=== PATIENT | female | born 1970 | race Caucasian/White ===

== ENCOUNTER 2018-09-01 18:21 | Emergency (ER) | payer OTHER ==
[2018-09-01] MEDS ORDERED: APRESOLINE 20 MG/ML INJ ONE (19:11)
[2018-09-01] MEDS ORDERED: Catapres 0.1 MG ONE (19:11)
[2018-09-01] MEDS ORDERED: BABY ASPIRIN 81 MG CHEW PO ONE (19:11)
[2018-09-01] MEDS ORDERED: APRESOLINE 20 MG/ML INJ IV ONE (19:13)
[2018-09-01] MEDS ORDERED: Catapres 0.1 MG PO ONE (19:13)
[2018-09-01] MEDS ORDERED: Sodium Chloride 0.9% 1000 ML 1,000 ML IV SCH (19:15)
[2018-09-01] MEDS ORDERED: Sodium Chloride 0.9% 1000 ML 1,000 ML ONE (19:19)
[2018-09-01 19:21] LABS: BASOPHIL % 0.5 % (0.0-0.4); Basophil (Absolute #) 0.05 (0-0.4); Eosinophil % 2.5 % (0.00-5.0); Eosinophil (Absolute #) 0.28 (0-0.5); Granulocyte Absolute (ANC) 5.72 (1.4-6.9); Granulocytes % 51.9 % (36.0-66.0); Hematocrit 44.5 % (35-47); Hemoglobin 15.3 gm/dl (12.0-16.0); INR 1.04 (0.8-3.0); Lymphocyte (Absolute #) 4.28 (1.0-4.6); Lymphocytes % 38.8 % (24.0-44.0); Mean Cell Volume 87.9 fl (78-100); Mean Corpuscular Hemoglobin 30.2 pg (26-32); Mean Corpuscular Hgb Concent. 34.4 g/dl (32-36); Mean Platelet Volume 10.7 fl (6-9.5); Monocytes % 6.3 % (0.0-12.0); Platelet Count 340 K/mm3 (150-450); Red Blood Count 5.06 M/mm3 (4.1-5.4); Red Cell Distribution Width 13.9 % (11.5-14.0)
--- NOTE | 2018-09-01 19:25 | ERPHSYRPT ---
- History of Present Illness Time Seen by Provider: 09/01/18 19:02 Source: patient Exam Limitations: clinical condition Patient Subjective Stated Complaint: pt reports starting feeling lightheaded around noon, felt progressively worse as the day went on. retirement staff took her bp and found it to be 245/122. pt reports she takes 3 different BP meds but has not had them for one week due to being incarcerated. Triage Nursing Assessment: pt is aox3, pupils perrl, afebrile, resps easy and non labored, lung sounds are clear throughout all toro, radial pulses strong and equal, heart sounds are strong and regular, no edema appreciated. skin is pink warm dry. Physician History: PATIENT WITH A HISTORY OF HYPERTENSION, NONCOMPLIANCE WITH MEDICATIONS, OUT OF MEDICATIONS SINCE INCARCERATED OVER THE PAST WEEK. HAS HAD TRANSIENT CHEST PAIN , PRESSURE AND HEADACHES. DENIES BLURRED VISION, SLURRED SPEECH, UNSTEADY GAIT , CHEST PAIN UPON ARRIVAL TO EMERGENCY ROOM, DYSPNEA, PALPITATIONS, DIAPHORESIS AND RADIATION OF CHEST PAIN TO JAW,NECK ARMS OR BACK. Timing/Duration: day(s) Quality: aching Head Pain Location: global Severity of Pain-Max: moderate Severity of Pain-Current: mild Recent Head Trauma: no recent headache/trauma Modifying Factors: Improves With: exposure to light Associated Symptoms: dizziness, light-headedness Previous symptoms: same symptoms as today, other (OUT OF BLOOD PRESSURE MEDICATIONS) Allergies/Adverse Reactions: No Known Drug Allergies Allergy (Verified 09/01/18 18:39) Home Medications: Alprazolam [Xanax] 2 mg PO TID 04/23/12 [History] Amlodipine Besylate 5 mg [Norvasc 5 mg] 5 mg PO DAILY 11/23/13 [History] Lisinopril/Hydrochlorothiazide [Lisinopril-Hctz 20-25 mg Tab] 1 each PO DAILY [History] Hx Tetanus, Diphtheria Vaccination/Date Given: No Hx Influenza Vaccination/Date Given: No Hx Pneumococcal Vaccination/Date Given: No Immunizations Up to Date: Yes - Review of Systems Constitutional: No Fever, No Chills Eyes: No Symptoms Ears, Nose, & Throat: No Symptoms Respiratory: No Symptoms, No Cough, No Dyspnea Cardiac: Chest Pain, No Edema, No Syncope Abdominal/Gastrointestinal: No Abdominal Pain, No Nausea, No Vomiting, No Diarrhea Genitourinary Symptoms: No Symptoms, No Dysuria Musculoskeletal: No Symptoms, No Back Pain, No Neck Pain Skin: No Rash Neurological: Headache, No Dizziness, No Focal Weakness, No Sensory Changes Psychological: No Symptoms Endocrine: No Symptoms All Other Systems: Reviewed and Negative - Past Medical History Pertinent Past Medical History: Yes Neurological History: No Pertinent History ENT History: No Pertinent History Cardiac History: Hypertension Respiratory History: No Pertinent History Endocrine Medical History: Diabetes Type II Musculoskeletal History: No Pertinent History GI Medical History: No Pertinent History History: No Pertinent History Psycho-Social History: Anxiety Female Reproductive Disorders: No Pertinent History - Past Surgical History Past Surgical History: Yes Neuro Surgical History: No Pertinent History Cardiac: No Pertinent History Respiratory: No Pertinent History Gastrointestinal: Cholecystectomy Genitourinary: No Pertinent History Musculoskeletal: No Pertinent History Female Surgical History: Section, Hysterectomy - Social History Smoking Status: Current every day smoker How long have you smoked: 20 Exposure to second hand smoke: No Drug Use: none Patient Lives Alone: No Significant Family History: diabetes, hypertension, stroke - Female History Hx Last Menstrual Period: hyst Hx Now: No - Nursing Vital Signs Nursing Vital Signs: Initial Vital Signs Temperature 99.1 F 09/01/18 18:27 Pulse Rate 95 H 09/01/18 18:27 Respiratory Rate 20 09/01/18 18:27 Blood Pressure 227/131 09/01/18 18:27 O2 Sat by Pulse Oximetry 99 09/01/18 18:27 Pain Scale Pain Intensity 0 - Physical Exam General Appearance: no apparent distress Eye Exam: PERRL/EOMI Ears, Nose, Throat Exam: normal ENT inspection, moist mucous membranes Neck Exam: normal inspection, supple, full range of motion, No meningismus Respiratory Exam: normal breath sounds, lungs clear Cardiovascular Exam: regular rate/rhythm, normal heart sounds Gastrointestinal/Abdominal Exam: soft, normal bowel sounds, No tenderness, No distention Back Exam: normal inspection, normal range of motion Extremity Exam: normal inspection, normal range of motion Mental Status Exam: alert, oriented x 3, cooperative information security specialist Exam: normal speech, PERRL, No facial droop Coordination/Gait Exam: normal finger to nose, normal cerebellar function Motor/Sensory Exam: no motor deficit, no sensory deficit DTR Exam: bicep (R): 2+, bicep (L): 2+, tricep (R): 2+, tricep (L): 2+, knee (R) : 2+, knee (L): 2+, ankle (R): 2+, ankle (L): 2+ Skin Exam: normal color, warm, dry, No rash SpO2 Interpretation: normal SpO2: 95 Oxygen Delivery: Room Air - Course EKG Interpreted by Me: RATE, Sinus Rhythm, NORMAL AXIS, Other (NO CHANGE IN T- WAVE INVERSION ANTERIORLY) - Radiology Exams Chest X-ray Interpretation: Interpreted by me, Negative - CT Exams Head CT Interpretation: Tele-radiologist Report, No/Intracranial Hemorrhag Ordered Tests: Active Orders 24 hr Category Date Time Status EKG-ER Only STAT Care 09/01/18 18:41 Active IV Insertion STAT Care 09/01/18 18:41 Active CHEST 1 VIEW (PORTABLE) Stat Exams 09/01/18 19:11 Taken HEAD WITHOUT CONTRAST [CT] Stat Exams 09/01/18 20:54 Taken CBC W DIFF Stat Lab 09/01/18 19:20 Completed CMP Stat Lab 09/01/18 19:20 Completed PROTIME WITH INR Stat Lab 09/01/18 19:20 Completed TROPONIN Q3H Lab 09/01/18 19:20 Completed TROPONIN Q3H Lab 09/01/18 22:15 Ordered TROPONIN Q3H Lab 09/02/18 01:15 Ordered TROPONIN Q3H Lab 09/02/18 04:15 Ordered TROPONIN Q3H Lab 09/02/18 07:15 Ordered Medication Summary Generic Name Dose Route Start Last Admin Trade Name Freq PRN Reason Stop Dose Admin Sodium Chloride 1,000 mls @ 50 mls/hr 09/01/18 19:15 09/01/18 19:21 Sodium Chloride 0.9% 1000 Ml IV 10/01/18 19:14 50 mls/hr .Q20H JESSICA Administration Discontinued Medications Generic Name Dose Route Start Last Admin Trade Name Freq PRN Reason Stop Dose Admin Aspirin 324 mg 09/01/18 19:11 09/01/18 19:20 Baby Aspirin 81 Mg Chew PO 09/01/18 19:12 324 mg STAT ONE Administration Clonidine Confirm 09/01/18 19:11 Catapres 0.1 Mg Administered 09/01/18 19:12 Dose 0.2 mg .ROUTE .STK-MED ONE Clonidine 0.2 mg 09/01/18 19:13 09/01/18 19:41 Catapres 0.1 Mg PO 09/01/18 19:14 0.2 mg STAT ONE Administration Hydralazine HCl 20 mg 09/01/18 19:13 09/01/18 19:20 Apresoline 20 Mg/Ml Inj IV 09/01/18 19:14 20 mg STAT ONE Administration Hydralazine HCl Confirm 09/01/18 19:11 Apresoline 20 Mg/Ml Inj Administered 09/01/18 19:12 Dose 20 mg .ROUTE .[facility]-MED ONE Lab/Rad Data: Laboratory Result Diagrams 09/01/18 19:20 09/01/18 19:20 Laboratory Results 09/01/18 09/01/18 09/01/18 Range/Units 19:20 19:20 19:20 WBC (4.0-10.5) K/mm3 RBC (4.1-5.4) M/mm3 Hgb (12.0-16.0) gm/dl Hct (35-47) % MCV (78-100) fl MCH (26-32) pg MCHC (32-36) g/dl RDW (11.5-14.0) % Plt Count (150-450) K/mm3 MPV (6-9.5) fl Gran % (36.0-66.0) % Eos # (Auto) (0-0.5) Absolute Lymphs (auto) (1.0-4.6) Absolute Monos (auto) (0.0-1.3) Lymphocytes % (24.0-44.0) % Monocytes % (0.0-12.0) % Eosinophils % (0.00-5.0) % Basophils % (0.0-0.4) % Absolute Granulocytes (1.4-6.9) Basophils # (0-0.4) PT 12.1 (9.95-12.35) SECONDS INR 1.04 (0.8-3.0) Sodium 140 (137-145) mmol/L Potassium 4.1 (3.5-5.1) mmol/L Chloride 105 (98-107) mmol/L Carbon Dioxide 24 (22-30) mmol/L Anion Gap 15.0 (5-15) MEQ/L BUN 10 (7-17) mg/dL Creatinine 0.86 (0.52-1.04) mg/dL Estimated GFR > 60.0 ML/MIN Glucose 147 H (74-106) mg/dL Calcium 10.7 H (8.4-10.2) mg/dL Total Bilirubin 0.50 (0.2-1.3) mg/dL AST 37 H (14-36) U/L ALT 33 (0-35) U/L Alkaline Phosphatase 122 (38-126) U/L Troponin I < 0.012 (0.000-0.034) ng/mL Serum Total Protein 8.3 H (6.3-8.2) g/dL Albumin 4.5 (3.5-5.0) g/dL 09/01/18 Range/Units 19:20 WBC 11.0 H (4.0-10.5) K/mm3 RBC 5.06 (4.1-5.4) M/mm3 Hgb 15.3 (12.0-16.0) gm/dl Hct 44.5 (35-47) % MCV 87.9 (78-100) fl MCH 30.2 (26-32) pg MCHC 34.4 (32-36) g/dl RDW 13.9 (11.5-14.0) % Plt Count 340 (150-450) K/mm3 MPV 10.7 H (6-9.5) fl Gran % 51.9 (36.0-66.0) % Eos # (Auto) 0.28 (0-0.5) Absolute Lymphs (auto) 4.28 (1.0-4.6) Absolute Monos (auto) 0.70 (0.0-1.3) Lymphocytes % 38.8 (24.0-44.0) % Monocytes % 6.3 (0.0-12.0) % Eosinophils % 2.5 (0.00-5.0) % Basophils % 0.5 (0.0-0.4) % Absolute Granulocytes 5.72 (1.4-6.9) Basophils # 0.05 (0-0.4) PT (9.95-12.35) SECONDS INR (0.8-3.0) Sodium (137-145) mmol/L Potassium (3.5-5.1) mmol/L Chloride (98-107) mmol/L Carbon Dioxide (22-30) mmol/L Anion Gap (5-15) MEQ/L BUN (7-17) mg/dL Creatinine (0.52-1.04) mg/dL Estimated GFR ML/MIN Glucose (74-106) mg/dL Calcium (8.4-10.2) mg/dL Total Bilirubin (0.2-1.3) mg/dL AST (14-36) U/L ALT (0-35) U/L Alkaline Phosphatase (38-126) U/L Troponin I (0.000-0.034) ng/mL Serum Total Protein (6.3-8.2) g/dL Albumin (3.5-5.0) g/dL - Progress Progress: improved Progress Note: 09/01/18 19:25 ADMINISTERED IV NORMAL SALINE 50ML/HR, HYDRALAZINE 20MG IV, CATAPRES 0.2MG ORALLY, DAUGHTER BROUGHT PATIENT'S HOME MEDICATIONS 09/01/18 20:49, BLOOD PRESSURE IMPROVED TO BP 155/98 09/01/18 22:02 Counseled pt/family regarding: lab results, rad results - Departure Time of Disposition: 22:00 Departure Disposition: Custodial/Group Home Clinical Impression: HYPERTENSION, MEDICATION NONCOMPLIANCE Condition: Stable Critical Care Time: No Referrals: RODNEY LIU [Primary Care Provider] - Additional Instructions: TAKE ALL CURRENT MEDICATIONS DIRECTED, BEGINNING IN THE AM. CONSULT THE [facility] PROVIDER FOR FOLLOWUP.
[2018-09-01 19:27] LABS: ALBUMIN 4.5 g/dL (3.5-5.0); ALKALINE PHOSPHATASE 122 U/L (38-126); BLOOD UREA NITROGEN 10 mg/dL (7-17); CHLORIDE 105 mmol/L (98-107); Calcium 10.7 mg/dL (8.4-10.2); Carbon Dioxide 24 mmol/L (22-30); Creatinine 1 0.86 mg/dL (0.52-1.04); Glucose 147 mg/dL (74-106); Potassium 4.1 mmol/L (3.5-5.1); SGOT/AST 37 U/L (14-36); SGPT/ALT 33 U/L (0-35); SODIUM 140 mmol/L (137-145); Total Protein 8.3 g/dL (6.3-8.2)
[2018-09-01 22:07] VITALS: BP 169/85; PULSE 84; O2SAT 97
[2018-09-01] MEDS ORDERED: BABY ASPIRIN 81 MG CHEW ONE (22:47)
[2018-09-02] MEDS ORDERED: BABY ASPIRIN 81 MG CHEW ONE (01:21)
--- NOTE | 2018-09-02 07:17 | XRAY ---
Indication: Chest pain and short of breath. Comparison: April 23, 2012. Portable chest again demonstrates normal heart, lungs, and bony thorax.
--- NOTE | 2018-09-02 07:21 | XRAY ---
Indication: Headache. Elevated blood pressure. Multiple contiguous axial images obtained through the head without contrast. Comparison: None Normal appearing brain parenchyma, ventricles, and bony calvarium. Inferior right maxillary sinus demonstrates partially visualized 2.8 cm polyp/retention cyst. Mastoid air cells are clear. Impression: Right maxillary sinus polyp/retention cyst. Remaining CT head without contrast exam is normal. Comment: Preliminary interpretation was made by [facility]. No discrepancy. CTDI 68.81
== END 2018-09-01 22:16 | disposition home or self-care (01) ==
LOC: ED 18:21 → EEVIPCON 18:21 → ED 22:16
DX: I10 Essential (primary) hypertension (principal); Z91.14 Patient's other noncompliance with medication regimen; R07.9 Chest pain, unspecified; R51 Headache; R42 Dizziness and giddiness
CPT/HCPCS: 36000; 36415; 70450; 71045; 80053; 84484; 85025; 85610; 93005; 96360; 96361; 96374; 99284; J0360; A9270-GY